=== PATIENT | male | born 1975 | race Caucasian/White ===

== ENCOUNTER 2018-10-30 17:34 | Emergency (ER) | payer BC ==
[2018-10-30 17:42] VITALS: BP 128/86; PULSE 84; RESP 18; TEMP 98.3
[2018-10-30] MEDS ORDERED: LIDOCAINE 1% INJ 10MG/ML (20 ML MDV) SQ ONE (17:44)
[2018-10-30] MEDS ORDERED: DIPH,PERTUS(ACELL)TETVAC-LF 0.5 ML VIAL IM ONE (18:16)
--- NOTE | 2018-10-30 19:56 | ED ---
General Adult HPI - General Chief complaint: Wound/Laceration Stated complaint: Leg laceration Time Seen by Provider: 10/30/18 17:44 Source: patient Mode of arrival: ambulatory Limitations: no limitations - Related Data Home Medications Medication Instructions Recorded Confirmed Aspirin EC [Ecotrin Low Dose] 81 mg PO DAILY 10/30/18 10/30/18 Metoprolol Succinate [Toprol XL] 50 mg PO DAILY 10/30/18 10/30/18 Allergies Allergy/AdvReac Type Severity Reaction Status Date / Time cephalexin [From Keflex] Allergy Unknown Verified 10/30/18 18:08 Review of Systems ROS Statement: Those systems with pertinent positive or pertinent negative responses have been documented in the HPI. ROS Other: All systems not noted in ROS Statement are negative. Past Medical History Additional Past Medical History / Comment(s): palpitations, pyloric stenosis History of Any Multi-Drug Resistant Organisms: None Reported Past Surgical History: Orthopedic Surgery, Plyoromyotomy Past Psychological History: No Psychological Hx Reported Smoking Status: Never smoker Past Alcohol Use History: Daily Past Drug Use History: None Reported General Exam Limitations: no limitations Course Vital Signs 10/30/18 17:40 Temperature 98.3 F Pulse Rate 84 Respiratory 18 Rate Blood Pressure 128/86 O2 Sat by Pulse 99 Oximetry Disposition Clinical Impression: Laceration Disposition: HOME SELF-CARE Condition: Stable Instructions (If sedation given, give patient instructions): Laceration (DC), Care For Your Stitches (DC) Additional Instructions: Please follow proper wound care instructions. Position to emergency department if symptoms worsen. Please return to 10 days for suture removal. Is patient prescribed a controlled substance at d/c from ED?: No Referrals: Nonstaff,Physician [Primary Care Provider] - 1-2 days Time of Disposition: 19:56
== END 2018-10-30 20:11 | disposition home or self-care (01) ==
LOC: EC 17:34
DX: S71.111A Laceration without foreign body, right thigh, initial encounter (principal); Z23 Encounter for immunization; Z79.82 Long term (current) use of aspirin; Z79.899 Other long term (current) drug therapy; Z88.1 Allergy status to other antibiotic agents; W31.2XXA Contact with powered woodworking and forming machines, initial encounter
CPT/HCPCS: 90715; 99282; 12002; 90471; J2001